=== PATIENT | female | born 1990 | race African-American/Black ===

== ENCOUNTER 2020-12-13 03:59 | Inpatient (IN) | payer OTHER, SELFPAY ==
[2020-12-13 04:05] VITALS: BP 113/64; PULSE 89; RESP 16; TEMP 36.7; O2SAT 97; BMI 20.5
[2020-12-13 04:07] VITALS: BP 113/64; PULSE 89; RESP 16; TEMP 36.7; O2SAT 97
[2020-12-13 04:40] LABS: Glucose Urine UA NEG (NEG); Leukocyte Esterase Urine NEG (NEG); Nitrite Urine NEG (NEG); PH 5.5 (5.0-8.0); Specific Gravity - Urine >= 1.030 (1.005-1.025); Urine Blood NEG (NEG); Urine Ketones 5 MG/DL (NEG); Urine Protein TRACE MG/DL (NEG-TRACE)
[2020-12-13 04:42] LABS: Appearance Urine HAZY; Color Urine YELLOW; UACC CULT NO
[2020-12-13 04:43] LABS: UPreg QC Valid YES; Urine Pregnancy NEGATIVE (NEGATIVE)
[2020-12-13 04:47] LABS: Bacteria Urine 1+ /LPF; Mucus Urine 3+ /LPF; RBC Urine 0 /HPF (0); Squamous Epithelial Cell Urine 3+ /LPF; WBC Urine 0-2 /HPF (0-4)
[2020-12-13 04:52] LABS: COVID-19 Test Negative (Negative); IDNOW Serial# 9DD0AD1C
[2020-12-13 04:56] LABS: Basophils Percent Auto 0.4 % (0-2); Eosinophils Absolute Auto 0.1 X10*3/uL (0.0-0.4); Eosinophils Percent Auto 1.5 % (0-4); Hematocrit 35.1 % (37-47); Hemoglobin 11.6 g/dl (12.0-16.0); Imm Gran Abs Auto 0.02 X10*3/uL (0.00-0.03); Imm Gran Pct Auto 0.3 % (0.0-0.4); Lymphocytes Absolute Auto 1.4 X10*3/uL (1.2-4.9); MANUAL DIFF FLAG NO; Mean Corpuscular Hemoglobin 30.4 pg (27.0-33.0); Mean Corpuscular Volume 91.9 fL (80-98); Mean Platelet Volume 10.6 fL (9.4-12.3); Monocytes Absolute Auto 0.4 X10*3/uL (0.1-1.2); Monocytes Percent Auto 5.7 % (2-11); Neutrophils Absolute Auto 5.6 X10*3/uL (2.0-8.3); Neutrophils Percent Auto 74.1 % (45-73); Platelet Count 245 X10*3/uL (160-400); Red Blood Count 3.82 X10*6/uL (4.20-5.50); Red Cell Distribution Width 12.8 % (11.0-16.0); White Blood Count 7.5 X10*3/uL (4.8-10.8)
--- NOTE | 2020-12-13 04:59 | PC.NURSE ---
ADALGISAN faxed/called/spoke with Diane/confirmed receipt of referral.
--- NOTE | 2020-12-13 05:04 | ED_ITS ---
HPI - Psych General Chief Complaint: Psychiatric Symptoms Stated Complaint: section 12 Time Seen by Provider: 12/13/20 05:04 Source: patient Mode of arrival: ambulatory Limitations: no limitations History of Present Illness HPI Narrative: Patient has history of depression lives in a motel loaded note saying that she is suicidal staff called PD. Patient does have a history of depression and suicidal ideation in the past but never had any suicidal attempt. Patient has a therapist who she has seen 2 weeks ago. Patient does not feel good feels depressed had thoughts of suicide but no plan MD complaint: suicidal ideation Onset (ago): day(s) History of same: Yes Relieving factors: none Exacerbating factors: none Associated psychiatric symptoms: depression and suicidal ideation Associated symptoms: denies other symptoms If self harm: admits thoughts of self harm Related Data Home Medications Medication Instructions Recorded Confirmed benztropine 1 tab PO BEDTIME 12/13/20 12/13/20 risperidone [Risperdal] 1 tab PO BEDTIME 12/13/20 12/13/20 Allergies Allergy/AdvReac Type Severity Reaction Status Date / Time No Known Allergies Allergy Verified 12/13/20 04:20 Review of Systems Review of Systems: Constitutional : No Fever, No Chills ENT/Mouth : No Ear Pain, No Nasal Congestion, No sore throat Eyes: No Eye Pain, No Swelling, No Redness Cardiovascular : No Chest Pain, No SOB Respiratory : No Cough, No Sputum, No Dyspnea Gastrointestinal : No Nausea, No Vomiting, No Diarrhea, No Hematochezia, No Melena Genitourinary : No Dysuria, No Urinary Frequency, No Hematuria Musculoskeletal : No Myalgias Skin : No Skin Lesions, No rash Neuro : No Weakness, No Numbness, No Paresthesias, No Dizziness, No Headache Psych : positive Anxiety, positive Depression, positive SI Heme/Lymph: No Lymphadenopathy Endocrine : No Polyuria, No Polydipsia [facility] Past Medical History Medical History (Updated 12/13/20 @ 05:53 by Pavan Dye MD) Major depression Social History Social History Advance Directives: No Physical Exam Vital Signs: Vital Signs: Last Vital Signs Temp 98.1 F 12/13/20 04:07 Pulse 89 12/13/20 04:07 Resp 16 12/13/20 04:07 BP 113/64 12/13/20 04:07 Pulse Ox 97 12/13/20 04:07 Body Mass Index 20.5 Appearance: Alert. Oriented X3. No acute distress. Eyes: Pupils equal, round and reactive to light. ENT: Pharynx normal. Neck: Normal inspection. Neck supple. CVS: Normal heart rate and rhythm. Pulses normal. Respiratory: No respiratory distress. Breath sounds normal. Abdomen: Soft and nontender. Bowel sounds are present, no mass palpable, no CVA tenderness Skin: Skin warm and dry. Normal skin color. Normal skin turgor. Extremities: No lower extremity edema. Neuro: Oriented X 3. No motor deficit. No sensory deficit. Psych: Depressed denies any hallucinations or delusions judgment fair no current suicidal feeling MDM - Psych MDM Narrative Medical decision making narrative: Patient been depressed with suicidal ideation no current thoughts at this time will get crisis consult Differential Diagnosis Differential diagnosis: Likely depression Medical Records Attestation: I reviewed the patient's medical records. Lab Data Attestation: I reviewed the patient's lab results. Result diagrams: 12/13/20 04:51 12/13/20 04:51 Labs: Lab Results 12/13/20 12/13/20 12/13/20 Range/Units 04:26 04:26 04:26 WBC (4.8-10.8) X10*3/uL RBC (4.20-5.50) X10*6/uL Hgb (12.0-16.0) g/dl Hct (37-47) % MCV (80-98) fL MCH (27.0-33.0) pg MCHC (31.0-35.0) g/dl RDW (11.0-16.0) % Plt Count (160-400) X10*3/uL MPV (9.4-12.3) fL Immature Gran % (Auto) (0.0-0.4) % Neut % (Auto) (45-73) % Lymph % (Auto) (20-40) % Island % (Auto) (2-11) % Eos % (Auto) (0-4) % Baso % (Auto) (0-2) % Lymph # (Auto) (1.2-4.9) X10*3/uL Island # (Auto) (0.1-1.2) X10*3/uL Eos # (Auto) (0.0-0.4) X10*3/uL Baso # (Auto) (0.0-0.2) X10*3/uL Abs Immat Gran (auto) (0.00-0.03) X10*3/uL Absolute Neuts (auto) (2.0-8.3) X10*3/uL Absolute Nucleated RBC (0.0-0.012) X10*3/uL Nucleated RBC % (auto) (0.0-0.2) /100WBC Sodium (135-145) mmol/L Potassium (3.3-5.1) mmol/L Chloride (96-108) mmol/L Carbon Dioxide (22-29) mmol/L Anion Gap (12-20) BUN (9-16) mg/dL Creatinine (0.5-1.4) mg/dL Estim Creat Clear Calc Estimated GFR Random Glucose (60-115) mg/dL Calcium (8.4-10.2) mg/dL Total Bilirubin (0.0-1.0) mg/dL Direct Bilirubin (0.0-0.5) mg/dL AST (5-31) U/L ALT (0-31) U/L Alkaline Phosphatase (39-117) U/L Total Protein (6.5-8.0) g/dL Albumin (3.5-5.0) g/dL Urine Color YELLOW Urine Appearance HAZY Urine pH 5.5 (5.0-8.0) Ur Specific [place] >= 1.030 H (1.005-1.025) Urine Protein TRACE (NEG-TRACE) MG/DL Urine Glucose (UA) NEG (NEG) MG/DL Urine Ketones 5 (NEG) MG/DL Urine Blood NEG (NEG) Urine Nitrite NEG (NEG) Ur Leukocyte Esterase NEG (NEG) Urine RBC 0 (0) /HPF Urine WBC 0-2 (0-4) /HPF Ur Squamous Epith Cells 3+ /LPF Urine Bacteria 1+ /LPF Urine Mucus 3+ /LPF Urine Test (NEGATIVE) Urine Opiates Screen Not Detected (Not Detect) Ur Barbiturates Screen Not Detected (Not Detect) Ur Phencyclidine Scrn Not Detected (Not Detect) Ur Amphetamines Screen Not Detected (Not Detect) U Benzodiazepines Scrn Not Detected (Not Detect) Urine Cocaine Screen Not Detected (Not Detect) U Marijuana (THC) Screen Not Detected (Not Detect) COVID-19 ([facility]) Negative (Negative) COVID-19 Clin Com See Note 12/13/20 12/13/20 12/13/20 Range/Units 04:26 04:51 04:51 WBC 7.5 (4.8-10.8) X10*3/uL RBC 3.82 L (4.20-5.50) X10*6/uL Hgb 11.6 L (12.0-16.0) g/dl Hct 35.1 L (37-47) % MCV 91.9 (80-98) fL MCH 30.4 (27.0-33.0) pg MCHC 33.0 (31.0-35.0) g/dl RDW 12.8 (11.0-16.0) % Plt Count 245 (160-400) X10*3/uL MPV 10.6 (9.4-12.3) fL Immature Gran % (Auto) 0.3 (0.0-0.4) % Neut % (Auto) 74.1 H (45-73) % Lymph % (Auto) 18.0 L (20-40) % Island % (Auto) 5.7 (2-11) % Eos % (Auto) 1.5 (0-4) % Baso % (Auto) 0.4 (0-2) % Lymph # (Auto) 1.4 (1.2-4.9) X10*3/uL Island # (Auto) 0.4 (0.1-1.2) X10*3/uL Eos # (Auto) 0.1 (0.0-0.4) X10*3/uL Baso # (Auto) 0.0 (0.0-0.2) X10*3/uL Abs Immat Gran (auto) 0.02 (0.00-0.03) X10*3/uL Absolute Neuts (auto) 5.6 (2.0-8.3) X10*3/uL Absolute Nucleated RBC 0.000 (0.0-0.012) X10*3/uL Nucleated RBC % (auto) 0.0 (0.0-0.2) /100WBC Sodium 140 (135-145) mmol/L Potassium 3.8 (3.3-5.1) mmol/L Chloride 106 (96-108) mmol/L Carbon Dioxide 23 (22-29) mmol/L Anion Gap 15 (12-20) BUN 10 (9-16) mg/dL Creatinine 0.72 (0.5-1.4) mg/dL Estim Creat Clear Calc 97.2 Estimated GFR > 60 Random Glucose 110 (60-115) mg/dL Calcium 9.0 (8.4-10.2) mg/dL Total Bilirubin 1.0 (0.0-1.0) mg/dL Direct Bilirubin 0.4 (0.0-0.5) mg/dL AST 12 (5-31) U/L ALT 9 (0-31) U/L Alkaline Phosphatase 56 (39-117) U/L Total Protein 7.0 (6.5-8.0) g/dL Albumin 4.5 (3.5-5.0) g/dL Urine Color Urine Appearance Urine pH (5.0-8.0) Ur Specific [place] (1.005-1.025) Urine Protein (NEG-TRACE) MG/DL Urine Glucose (UA) (NEG) MG/DL Urine Ketones (NEG) MG/DL Urine Blood (NEG) Urine Nitrite (NEG) Ur Leukocyte Esterase (NEG) Urine RBC (0) /HPF Urine WBC (0-4) /HPF Ur Squamous Epith Cells /LPF Urine Bacteria /LPF Urine Mucus /LPF Urine Test NEGATIVE (NEGATIVE) Urine Opiates Screen (Not Detect) Ur Barbiturates Screen (Not Detect) Ur Phencyclidine Scrn (Not Detect) Ur Amphetamines Screen (Not Detect) U Benzodiazepines Scrn (Not Detect) Urine Cocaine Screen (Not Detect) U Marijuana (THC) Screen (Not Detect) COVID-19 ([facility]) (Negative) COVID-19 Clin Com Discharge Plan Discharge Clinical Impression: Depression Qualifiers: Depression Type: major depressive disorder Major depression recurrence: recurrent Active/Remission status: currently active Major depression episode severity: moderate Qualified Code(s): F33.1 - Major depressive disorder, recurrent, moderate Prescriptions: No Action benztropine 0.5 mg tablet 1 tab PO BEDTIME RF: 0 risperidone [Risperdal] 1 mg tablet 1 tab PO BEDTIME RF: 0
[2020-12-13 05:07] LABS: Amphetamine Screen Urine Not Detected (Not Detect); Barbiturates, Urine Not Detected (Not Detect); Benzodiazepines Screen Urine Not Detected (Not Detect); Cannabinoid Screen Urine Not Detected (Not Detect); Cocaine Screen Urine Not Detected (Not Detect); Opiate Screen Urine Not Detected (Not Detect); Phencyclidine Screen Urine Not Detected (Not Detect)
[2020-12-13 05:19] LABS: Alanine Aminotransferase 9 U/L (0-31); Albumin Level 4.5 g/dL (3.5-5.0); Alkaline Phosphatase 56 U/L (39-117); Anion Gap 15 (12-20); Aspartate Amino Transferase 12 U/L (5-31); Bilirubin Direct 0.4 mg/dL (0.0-0.5); Blood Urea Nitrogen 10 mg/dL (9-16); Carbon Dioxide 23 mmol/L (22-29); Chloride 106 mmol/L (96-108); Creatinine Clr Calc Pharmacy 97.2; Estimated Glomerular Filt Rate > 60; Glucose Random 110 mg/dL (60-115); Potassium 3.8 mmol/L (3.3-5.1); Sodium 140 mmol/L (135-145)
--- NOTE | 2020-12-13 07:16 | PC.NURSE ---
Report received from Paul HAND. Pt sleeping at this time, awaiting breakfast. Awaiting BHN. BHN made aware of pt waiting for eval.
[2020-12-13 08:00] VITALS: RESP 16
--- NOTE | 2020-12-13 15:57 | PC.NURSE ---
bhn in room for evaluation.
--- NOTE | 2020-12-13 19:08 | PC.NURSE ---
Patient just got seen by N, disposition updated patient is on section-12 inpatient bed search, patient and provider aware, denied distress at this time, will continue to monitor.
[2020-12-13] MEDS: Benztropine Mesylate 0.5 MG TABLET PO (20:19)
[2020-12-13] MEDS: risperiDONE 1 MG TABLET PO (20:19)
[2020-12-13 20:23] VITALS: BP 102/55; PULSE 74; RESP 18; TEMP 36.2; O2SAT 99
[2020-12-14 06:40] VITALS: BP 113/67; PULSE 61; RESP 18; TEMP 36.6; O2SAT 100
--- NOTE | 2020-12-14 07:22 | PC.NURSE ---
Report received from YAZAN Miller. Pt resting, resp unlabored.
[2020-12-14 10:48] VITALS: BP 111/64; PULSE 84; RESP 16; TEMP 36.5; O2SAT 100
--- NOTE | 2020-12-14 12:49 | PC.NURSE ---
Pt awake, alert- reports continued depression and SI. Pt pleasant, + eye contact, ate lunch. Pt aware that she is awaiting inpatient bed - states she has been inpatient in the past and is familiar w/ process.
[2020-12-14 14:00] VITALS: RESP 20
--- NOTE | 2020-12-14 14:06 | PC.NURSE ---
Pt aware that she has been accepted to [facility], and is in agreement w/ plan.
[2020-12-14 15:42] VITALS: BP 102/61; PULSE 78; RESP 15; TEMP 36.6; O2SAT 99
--- NOTE | 2020-12-14 17:46 | PC.NURSE ---
Report given to YAZAN Martínez.
--- NOTE | 2020-12-14 18:19 | PC.NURSE ---
Pt resting, resp unlabored.
--- NOTE | 2020-12-14 20:08 | PC.NURSE ---
Patient in bed resting quietly, no distress observed/reported, per report patient had decent shift, pending admission to , will continue to monitor.
[2020-12-14 21:19] VITALS: BP 100/54; PULSE 77; RESP 18; TEMP 36.8; O2SAT 100
[2020-12-14] MEDS: Benztropine Mesylate 0.5 MG TABLET PO (21:23)
[2020-12-14] MEDS: risperiDONE 1 MG TABLET PO (21:24)
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
[2020-12-15 19:00] VITALS: BP 130/79; PULSE 97; TEMP 36.7
[2020-12-15] MEDS: Benztropine Mesylate 0.5 MG TABLET PO (21:38)
[2020-12-15] MEDS: risperiDONE 1 MG TABLET PO (21:38)
[2020-12-16 06:05] VITALS: BP 87/49; PULSE 69; RESP 16; TEMP 37; O2SAT 98
[2020-12-16 08:26] LABS: Thyroid Stimulating Hormone 2.16 uIU/mL (0.32-4.0)
[2020-12-16 08:27] LABS: Vitamin D 25-OH Total 20.1 ng/mL (>30)
[2020-12-16 18:00] VITALS: BP 105/58; PULSE 89; TEMP 37.1
--- NOTE | 2020-12-16 18:29 | P.PNPSI_ITS ---
Subjective Subjective Date of Service: 12/16/20 Reason For Visit: Suicidality Subjective Notes: Conditional Voluntary Interim History: Michelle was withdrawn and shutdown though she stated that she was feeling safe and secure on the unit. She expressed concern about where she would go when she leaves. She has been in behavioral control. Medication Compliance: Yes Side effects from medications: No Attending Groups: Intermittent Review of Systems Acute medical concerns: No Medical Review of Systems: unchanged Review of Systems Review of Systems Constitutional : No Fever, No Chills ENT/Mouth : No Ear Pain, No Nasal Congestion, No sore throat Eyes: No Eye Pain, No Swelling, No Redness Cardiovascular : No Chest Pain, No SOB Respiratory : No Cough, No Sputum, No Dyspnea Gastrointestinal : No Nausea, No Vomiting, No Diarrhea, No Hematochezia, No Melena Genitourinary : No Dysuria, No Urinary Frequency, No Hematuria Musculoskeletal : No Myalgias Skin : No Skin Lesions, No rash Neuro : No Weakness, No Numbness, No Paresthesias, No Dizziness, No Headache Psych : positive Anxiety, positive Depression, positive SI Heme/Lymph: No Lymphadenopathy Endocrine : No Polyuria, No Polydipsia Yes all other systems are reviewed and are negative Cardiovascular: Reports other (reports hx of angina with increase in anxiety) Reports behavioral changes Psychiatric: Reports abnormal sleep pattern, Reports anxiety, Reports behavioral changes, Reports change in appetite, Reports depression, Reports difficulty concentrating, Reports hopelessness, Reports irritability, Reports anhedonia, Re ports mood swings, Reports panic attacks and Reports suicidal ideation Mental Status Exam Mental Status Exam Patient Appearance: Appropriate Patient Orientation: Person, Place, Time and Situation Level of Consciousness: Awake and Alert Patient Behavior: Appropriate, Guarded, Cooperative, Passive, Suspicious, Anxious, Fearful, Avoidant and Isolative Mood Description: Suspicious, Withdrawn, Depressed and Anxious Affect Description: Withdrawn and Flat Patient Cognition Impaired: No Ability to Follow Directions: Good Speech Pattern: Clear and Spontaneous Speech Memory Description: Intact Hallucinations: None Delusions: Not Present Thought Process: Intact Thought Content: positive for Intact, negative for Suicidal Ideation and negative for Homicidal Ideation Depressive Symptoms: Increased Anxiety and Crying Spells Judgement: Fair Diagnostics Vital Signs (24Hr): Vital Signs - 24 hr 12/15/20 19:00 12/16/20 06:05 Temperature 98.1 F 98.6 F Pulse Rate 97 69 Respiratory Rate 16 Blood Pressure 130/79 87/49 L Pulse Oximetry 98 Body Mass Index 20.5 Labs Results: 12/13/20 04:51 12/13/20 04:51 Labs: Laboratory Results - last 48 hr 12/16/20 12/16/20 07:35 07:35 25-OH Vitamin D Total 20.1 TSH 2.16 Medications Medications Current Medications Generic Name Dose Route Start Last Admin Trade Name Freq PRN Reason Stop Dose Admin Acetaminophen 650 mg 12/14/20 19:34 Acetaminophen 325 Mg Tablet PO Q6H PRN Headache/Pain Mild Scale (1-3) Al Hydroxide/Mg Hydroxide 30 ml 12/14/20 19:34 Magnesium Hydrox/Alum Hydrox 30 Ml Oral.Susp PO Q6H PRN Heartburn/Nausea Benztropine Mesylate 0.5 mg 12/13/20 21:00 12/15/20 21:38 Benztropine Mesylate 0.5 Mg Tablet PO 0.5 mg BEDTIME SHWETA Administration Hydroxyzine HCl 25 mg 12/14/20 19:34 Hydroxyzine Hcl 25 Mg Tablet PO BEDTIME PRN Anxiety Lorazepam 1 mg 12/14/20 19:34 Lorazepam 1 Mg Tablet PO Q4H PRN Anxiety Magnesium Hydroxide 30 ml 12/14/20 19:34 Milk Of Magnesia 30 Ml Oral.Susp PO DAILY PRN Constipation Risperidone 1 mg 12/13/20 21:00 12/15/20 21:38 Risperidone 1 Mg Tablet PO 1 mg BEDTIME SHWETA Administration Risperidone 1 mg 12/14/20 19:45 Risperidone 1 Mg Tablet PO Q4H PRN Anxiety Trazodone HCl 50 mg 12/14/20 19:34 Trazodone Hcl 50 Mg Tablet PO BEDTIME PRN Insomnia Allergies Allergies Allergy/AdvReac Type Severity Reaction Status Date / Time No Known Allergies Allergy Verified 12/13/20 04:20 Assessment & Plan Assessment & Plan (1) Major depressive disorder: Qualifiers: Active/Remission status: remission status unspecified Major depression recurrence: unspecified whether recurrent Qualified Code(s): F32.9 - Major depressive disorder, single episode, unspecified Status: Acute Code(s): F32.9 - Major depressive disorder, single episode, unspecified Assessment and Plan: -Continue current regime Greater than 50% of the session was spent on counseling and/or coordination of care Patient educated on: diagnosis and medication risk/benefits Informed Consent: further education needed Reason for contiued inpatient stay Substantial Risk for: harm to self
[2020-12-16] MEDS: Benztropine Mesylate 0.5 MG TABLET PO (20:13)
[2020-12-16] MEDS: risperiDONE 1 MG TABLET PO (20:13)
[2020-12-17 06:25] VITALS: BP 91/59; PULSE 81; RESP 16; TEMP 37.2; O2SAT 100
--- NOTE | 2020-12-17 15:21 | HO.PSYCHPN ---
Subjective Subjective Date of Service: 12/17/20 Reason For Visit: Suicidality Interim History: Michelle was still quite withdrawn and shutdown though she stated that she was feeling safe and secure on the unit. She expressed concern about where she would go when she leaves. She has been in behavioral control. Medication Compliance: Yes Side effects from medications: No Attending Groups: Yes Review of Systems Acute medical concerns: No Medical Review of Systems: unchanged Review of Systems Review of Systems Constitutional : No Fever, No Chills ENT/Mouth : No Ear Pain, No Nasal Congestion, No sore throat Eyes: No Eye Pain, No Swelling, No Redness Cardiovascular : No Chest Pain, No SOB Respiratory : No Cough, No Sputum, No Dyspnea Gastrointestinal : No Nausea, No Vomiting, No Diarrhea, No Hematochezia, No Melena Genitourinary : No Dysuria, No Urinary Frequency, No Hematuria Musculoskeletal : No Myalgias Skin : No Skin Lesions, No rash Neuro : No Weakness, No Numbness, No Paresthesias, No Dizziness, No Headache Psych : positive Anxiety, positive Depression, positive SI Heme/Lymph: No Lymphadenopathy Endocrine : No Polyuria, No Polydipsia Yes all other systems are reviewed and are negative Cardiovascular: Reports other (reports hx of angina with increase in anxiety) Reports behavioral changes Psychiatric: Reports abnormal sleep pattern, Reports anxiety, Reports behavioral changes, Reports change in appetite, Reports depression, Reports difficulty concentrating, Reports hopelessness, Reports irritability, Reports anhedonia, Reports mood swings, Reports panic attacks and Reports suicidal ideation Mental Status Exam Mental Status Exam Patient Appearance: Appropriate Patient Orientation: Person, Place, Time and Situation Level of Consciousness: Awake and Alert Patient Behavior: Appropriate, Guarded, Cooperative, Passive, Suspicious, Anxious, Fearful, Avoidant and Isolative Mood Description: Suspicious, Withdrawn, Depressed and Anxious Affect Description: Withdrawn and Flat Patient Cognition Impaired: No Ability to Follow Directions: Good Speech Pattern: Clear and Spontaneous Speech Memory Description: Intact Thought Content: negative for Suicidal Ideation and negative for Homicidal Ideation Judgement: Fair Diagnostics Vital Signs (24Hr): Vital Signs - 24 hr 12/16/20 18:00 12/17/20 06:25 Temperature 98.7 F 98.9 F Pulse Rate 89 81 Respiratory Rate 16 Blood Pressure 105/58 L 91/59 L Pulse Oximetry 100 Body Mass Index 20.5 Labs Results: 12/13/20 04:51 12/13/20 04:51 Labs: Laboratory Results - last 48 hr 12/16/20 12/16/20 07:35 07:35 25-OH Vitamin D Total 20.1 TSH 2.16 Medications Medications Current Medications Generic Name Dose Route Start Last Admin Trade Name Diann PRN Reason Stop Dose Admin Acetaminophen 650 mg 12/14/20 19:34 Acetaminophen 325 Mg Tablet PO Q6H PRN Headache/Pain Mild Scale (1-3) Al Hydroxide/Mg Hydroxide 30 ml 12/14/20 19:34 Magnesium Hydrox/Alum Hydrox 30 Ml Oral.Susp PO Q6H PRN Heartburn/Nausea Benztropine Mesylate 0.5 mg 12/13/20 21:00 12/16/20 20:13 Benztropine Mesylate 0.5 Mg Tablet PO 0.5 mg BEDTIME SHWETA Administration Hydroxyzine HCl 25 mg 12/14/20 19:34 Hydroxyzine Hcl 25 Mg Tablet PO BEDTIME PRN Anxiety Lorazepam 1 mg 12/14/20 19:34 Lorazepam 1 Mg Tablet PO Q4H PRN Anxiety Magnesium Hydroxide 30 ml 12/14/20 19:34 Milk Of Magnesia 30 Ml Oral.Susp PO DAILY PRN Constipation Risperidone 1 mg 12/13/20 21:00 12/16/20 20:13 Risperidone 1 Mg Tablet PO 1 mg BEDTIME SHWETA Administration Risperidone 1 mg 12/14/20 19:45 Risperidone 1 Mg Tablet PO Q4H PRN Anxiety Trazodone HCl 50 mg 12/14/20 19:34 Trazodone Hcl 50 Mg Tablet PO BEDTIME PRN Insomnia Allergies Allergies Allergy/AdvReac Type Severity Reaction Status Date / Time No Known Allergies Allergy Verified 12/13/20 04:20 Assessment & Plan Assessment & Plan (1) Major depressive disorder: Qualifiers: Active/Remission status: remission status unspecified Major depression recurrence: unspecified whether recurrent Qualified Code(s): F32.9 - Major depressive disorder, single episode, unspecified Status: Acute Code(s): F32.9 - Major depressive disorder, single episode, unspecified Assessment and Plan: -Continue current regime Greater than 50% of the session was spent on counseling and/or coordination of care Patient educated on: diagnosis and medication risk/benefits Informed Consent: further education needed Reason for contiued inpatient stay Substantial Risk for: rapid decompensation
[2020-12-17 18:55] VITALS: BP 106/64; PULSE 94; TEMP 36.9
[2020-12-17] MEDS: risperiDONE 1 MG TABLET PO (20:25)
[2020-12-17] MEDS: Benztropine Mesylate 0.5 MG TABLET PO (20:25)
[2020-12-18 04:15] LABS: Folate 8.7 ng/mL (> or = 4.0); Vitamin B12 549 pg/mL (200-900)
[2020-12-18 06:05] VITALS: BP 101/55; PULSE 74; RESP 14; TEMP 36.3; O2SAT 100
--- NOTE | 2020-12-18 15:35 | HO.PSYCHPN ---
Subjective Subjective Date of Service: 12/18/20 Reason For Visit: Suicidality Subjective Notes: Conditional Voluntary Interim History: Pt reports difficulty with sleep-latency, VENU. Trazodone has not been too helpful. Reports she is not suicidal. Tells team anxiety and depressive sx are decreased. Discussed issues with her mother and pt's perception that she is not a strong support for her-discussed possible family meeting to clarify pt's issues with mother and development of a plan-pt unsure if she wants to address this or just move forward without family involvement. Discussed changing checks-pt is feeling safe to go on regular checks. She is considering PHP however will make contact with the program on her own as there are technical issues she needs to manage. Feeling uncomfortable living in her apartment and wanting to work on moving to another place. Discussion of discharge and planning. Medication Compliance: Yes Side effects from medications: No Attending Groups: Intermittent Review of Systems Review of Systems Yes all other systems are reviewed and are negative (denies) Psychiatric: Reports abnormal sleep pattern Mental Status Exam Mental Status Exam Patient Appearance: Disheveled Patient Orientation: Person, Place, Time and Situation Level of Consciousness: Alert Patient Behavior: Appropriate, Talkative and Good Eye Contact Mood Description: Withdrawn Affect Description: Flat Patient Cognition Impaired: No Ability to Follow Directions: Good Speech Pattern: Spontaneous Speech Memory Description: Intact Hallucinations: None (denies) Delusions: Not Present Thought Process: Intact Thought Content: positive for Intact and positive for Suicidal Ideation (denies) Depressive Symptoms: Increased Anxiety Judgement: Good Diagnostics Vital Signs (24Hr): Vital Signs - 24 hr 12/17/20 18:55 12/18/20 06:05 Temperature 98.4 F 97.4 F Pulse Rate 94 74 Respiratory Rate 14 Blood Pressure 106/64 101/55 L Pulse Oximetry 100 Body Mass Index 20.5 Labs Results: 12/13/20 04:51 12/13/20 04:51 Labs: Laboratory Results - last 48 hr 12/16/20 07:35 Vitamin B12 549 Folate 8.7 Medications Medications Current Medications Generic Name Dose Route Start Last Admin Trade Name Freq PRN Reason Stop Dose Admin Acetaminophen 650 mg 12/14/20 19:34 Acetaminophen 325 Mg Tablet PO Q6H PRN Headache/Pain Mild Scale (1-3) Al Hydroxide/Mg Hydroxide 30 ml 12/14/20 19:34 Magnesium Hydrox/Alum Hydrox 30 Ml Oral.Susp PO Q6H PRN Heartburn/Nausea Benztropine Mesylate 0.5 mg 12/13/20 21:00 12/17/20 20:25 Benztropine Mesylate 0.5 Mg Tablet PO 0.5 mg BEDTIME SHWETA Administration Hydroxyzine HCl 25 mg 12/14/20 19:34 Hydroxyzine Hcl 25 Mg Tablet PO BEDTIME PRN Anxiety Lorazepam 1 mg 12/14/20 19:34 Lorazepam 1 Mg Tablet PO Q4H PRN Anxiety Magnesium Hydroxide 30 ml 12/14/20 19:34 Milk Of Magnesia 30 Ml Oral.Susp PO DAILY PRN Constipation Risperidone 1 mg 12/13/20 21:00 12/17/20 20:25 Risperidone 1 Mg Tablet PO 1 mg BEDTIME SHWETA Administration Risperidone 1 mg 12/14/20 19:45 Risperidone 1 Mg Tablet PO Q4H PRN Anxiety Trazodone HCl 50 mg 12/14/20 19:34 Trazodone Hcl 50 Mg Tablet PO BEDTIME PRN Insomnia Allergies Allergies Allergy/AdvReac Type Severity Reaction Status Date / Time No Known Allergies Allergy Verified 12/13/20 04:20 Assessment & Plan Assessment & Plan (1) Recurrent major depression: Status: Acute Code(s): F33.9 - Major depressive disorder, recurrent, unspecified Assessment and Plan: -Remeron 7.5 mg hs to assist with sleep -Discussed with pt if she would find a family meeting with her mother to be helpful prior to discharge. She will consider this. Greater than 50% of the session was spent on counseling and/or coordination of care Reason for contiued inpatient stay Substantial Risk for: harm to self and rapid decompensation
[2020-12-18 18:00] VITALS: BP 120/67; PULSE 88; TEMP 36.2
[2020-12-18] MEDS: Benztropine Mesylate 0.5 MG TABLET PO (21:26)
[2020-12-18] MEDS: Mirtazapine 7.5 MG TABLET PO (21:26)
[2020-12-18] MEDS: risperiDONE 1 MG TABLET PO (21:26)
[2020-12-19 06:15] VITALS: BP 105/53; PULSE 67; RESP 16; TEMP 36.7; O2SAT 100
[2020-12-19 08:45] LABS: Estimated Average Glucose 88 mg/dL; Hemoglobin A1C 90.2389 umol/L; Hemoglobin A1c % 4.7 %
[2020-12-19 09:08] LABS: Cholesterol 166 mg/dL; Glucose Fasting 80 mg/dL (60-99); HDL Cholesterol 53 mg/dL; LDL Cholesterol Calculated 101 mg/dl; Triglycerides 61 mg/dL
--- NOTE | 2020-12-19 13:04 | PM.PSYDC ---
DS: Providers Provider Date of Service: 01/07/21 Date of admission: 12/14/20 21:36 Primary care physician: Scarlet Acosta MD DS: Diagnosis Discharge Diagnosis (1) Recurrent major depression: Status: Acute Problem details: 30 yo female, hx of major depression, admitted after leaving a suicide note at the assistant front end manager of a hotel where she was staying. Reports a history of depression and SIBS-cutting, burning, hair pulling, hitting herself. Current precipitant is ongoing conflicts with her mother and pt's reported lack of knowledge of appropriate coping skills to manage her emotions and assist her in modulation of affect with stress arises. DS: Medications Discharge Medications Home Medications: Previous Rx's Medication Instructions Recorded benztropine 1 tab PO BEDTIME #30 tab 12/19/20 mirtazapine 7.5 mg PO BEDTIME #15 tab 12/19/20 risperidone [Risperdal] 1 tab PO BEDTIME #30 tab 12/19/20 Discharge Plan Discharge Patient Disposition: Home, Self-Care Discharge Diagnosis: Recurrent Major Depression Referrals: Therapist: Richardson Gonsales ([facility]) [Other] - 12/22/20 2:00 pm Psych Prescriber: Margareth Hurst ([facility]) [Other] - 01/17/21 2:40 pm Psych Prescriber: Margareth Hurst ([facility]) [Other] - 02/14/21 8:40 am [facility] ([facility]) [Other] Scarlet Mckenna, [employer] [Nurse Practitioner] - 01/05/21 9:40 am (IN OFFICE) Discharge Medications: New mirtazapine 7.5 mg Tablet 7.5 mg PO BEDTIME Qty: 15 RF: 1 Continued benztropine 0.5 mg tablet 1 tab PO BEDTIME Qty: 30 RF: 0 risperidone [Risperdal] 1 mg tablet 1 tab PO BEDTIME Qty: 30 RF: 0 Discharge Orders: Discharge Order (Routine); Ordered 12/19/20 Ordered By: Sarai Lorenzana Diet: advance to usual diet Activity on Discharge: As tolerated Stand Alone Forms: Patient Portal Discharge page, Community Support Care Plan Goals: Mood stability Health Concerns: Recurrent Major Depression Plan of Treatment: Take medications as directed Follow up with provider appointments Work with [facility] on your career goals. Assessment: Pt has returned to baseline. She has clear goals that are future oriented. Discharge Date/Time: 12/19/20 13:55 Mental Status Exam Mental Status Exam Patient Appearance: Appropriate Patient Orientation: Person, Place, Time and Situation Level of Consciousness: Alert Patient Behavior: Appropriate, Talkative and Cooperative Mood Description: Calm Affect Description: Calm Patient Cognition Impaired: No Ability to Follow Directions: Good Speech Pattern: Spontaneous Speech Memory Description: Intact Hallucinations: None Delusions: Not Present Thought Process: Intact Thought Content: positive for Intact and positive for Suicidal Ideation (denies) Judgement: Good Data Data Completed and Pending Completed studies during hospitalization [Text1]: 12/13/20 12/13/20 12/13/20 04:26 04:26 04:26 WBC RBC Hgb Hct MCV MCH MCHC RDW Plt Count MPV Immature Gran % (Auto) Neut % (Auto) Lymph % (Auto) Daniels % (Auto) Eos % (Auto) Baso % (Auto) Lymph # (Auto) Daniels # (Auto) Eos # (Auto) Baso # (Auto) Abs Immat Gran (auto) Absolute Neuts (auto) Absolute Nucleated RBC Nucleated RBC % (auto) Sodium Potassium Chloride Carbon Dioxide Anion Gap BUN Creatinine Estim Creat Clear Calc Estimated GFR Random Glucose Fasting Glucose Estimat Average Glucose Hemoglobin A1c % Calcium Total Bilirubin Direct Bilirubin AST ALT Alkaline Phosphatase Total Protein Albumin Triglycerides Cholesterol LDL Cholesterol, Calc HDL Cholesterol Vitamin B12 25-OH Vitamin D Total Folate TSH Urine Color YELLOW Urine Appearance HAZY Urine pH 5.5 Ur Specific [place] >= 1.030 H Urine Protein TRACE Urine Glucose (UA) NEG Urine Ketones 5 Urine Blood NEG Urine Nitrite NEG Ur Leukocyte Esterase NEG Urine RBC 0 Urine WBC 0-2 Ur Squamous Epith Cells 3+ Urine Bacteria 1+ Urine Mucus 3+ Urine Test Urine Opiates Screen Not Detected Ur Barbiturates Screen Not Detected Ur Phencyclidine Scrn Not Detected Ur Amphetamines Screen Not Detected U Benzodiazepines Scrn Not Detected Urine Cocaine Screen Not Detected U Marijuana (THC) Screen Not Detected COVID-19 ([facility]) Negative COVID-19 Clin Com See Note 12/13/20 12/13/20 12/13/20 04:26 04:51 04:51 WBC 7.5 RBC 3.82 L Hgb 11.6 L Hct 35.1 L MCV 91.9 MCH 30.4 MCHC 33.0 RDW 12.8 Plt Count 245 MPV 10.6 Immature Gran % (Auto) 0.3 Neut % (Auto) 74.1 H Lymph % (Auto) 18.0 L Daniels % (Auto) 5.7 Eos % (Auto) 1.5 Baso % (Auto) 0.4 Lymph # (Auto) 1.4 Daniels # (Auto) 0.4 Eos # (Auto) 0.1 Baso # (Auto) 0.0 Abs Immat Gran (auto) 0.02 Absolute Neuts (auto) 5.6 Absolute Nucleated RBC 0.000 Nucleated RBC % (auto) 0.0 Sodium 140 Potassium 3.8 Chloride 106 Carbon Dioxide 23 Anion Gap 15 BUN 10 Creatinine 0.72 Estim Creat Clear Calc 97.2 Estimated GFR > 60 Random Glucose 110 Fasting Glucose Estimat Average Glucose Hemoglobin A1c % Calcium 9.0 Total Bilirubin 1.0 Direct Bilirubin 0.4 AST 12 ALT 9 Alkaline Phosphatase 56 Total Protein 7.0 Albumin 4.5 Triglycerides Cholesterol LDL Cholesterol, Calc HDL Cholesterol Vitamin B12 25-OH Vitamin D Total Folate TSH Urine Color Urine Appearance Urine pH Ur Specific [place] Urine Protein Urine Glucose (UA) Urine Ketones Urine Blood Urine Nitrite Ur Leukocyte Esterase Urine RBC Urine WBC Ur Squamous Epith Cells Urine Bacteria Urine Mucus Urine Test NEGATIVE Urine Opiates Screen Ur Barbiturates Screen Ur Phencyclidine Scrn Ur Amphetamines Screen U Benzodiazepines Scrn Urine Cocaine Screen U Marijuana (THC) Screen COVID-19 ([facility]) COVID-19 Clin Com 12/16/20 12/16/20 12/16/20 07:35 07:35 07:35 WBC RBC Hgb Hct MCV MCH MCHC RDW Plt Count MPV Immature Gran % (Auto) Neut % (Auto) Lymph % (Auto) Daniels % (Auto) Eos % (Auto) Baso % (Auto) Lymph # (Auto) Daniels # (Auto) Eos # (Auto) Baso # (Auto) Abs Immat Gran (auto) Absolute Neuts (auto) Absolute Nucleated RBC Nucleated RBC % (auto) Sodium Potassium Chloride Carbon Dioxide Anion Gap BUN Creatinine Estim Creat Clear Calc Estimated GFR Random Glucose Fasting Glucose Estimat Average Glucose Hemoglobin A1c % Calcium Total Bilirubin Direct Bilirubin AST ALT Alkaline Phosphatase Total Protein Albumin Triglycerides Cholesterol LDL Cholesterol, Calc HDL Cholesterol Vitamin B12 549 25-OH Vitamin D Total 20.1 Folate 8.7 TSH 2.16 Urine Color Urine Appearance Urine pH Ur Specific [place] Urine Protein Urine Glucose (UA) Urine Ketones Urine Blood Urine Nitrite Ur Leukocyte Esterase Urine RBC Urine WBC Ur Squamous Epith Cells Urine Bacteria Urine Mucus Urine Test Urine Opiates Screen Ur Barbiturates Screen Ur Phencyclidine Scrn Ur Amphetamines Screen U Benzodiazepines Scrn Urine Cocaine Screen U Marijuana (THC) Screen COVID-19 ([facility]) COVID-19 Clin Com 12/19/20 12/19/20 08:23 08:23 WBC RBC Hgb Hct MCV MCH MCHC RDW Plt Count MPV Immature Gran % (Auto) Neut % (Auto) Lymph % (Auto) Daniels % (Auto) Eos % (Auto) Baso % (Auto) Lymph # (Auto) Daniels # (Auto) Eos # (Auto) Baso # (Auto) Abs Immat Gran (auto) Absolute Neuts (auto) Absolute Nucleated RBC Nucleated RBC % (auto) Sodium Potassium Chloride Carbon Dioxide Anion Gap BUN Creatinine Estim Creat Clear Calc Estimated GFR Random Glucose Fasting Glucose 80 Estimat Average Glucose 88 Hemoglobin A1c % 4.7 Calcium Total Bilirubin Direct Bilirubin AST ALT Alkaline Phosphatase Total Protein Albumin Triglycerides 61 Cholesterol 166 LDL Cholesterol, Calc 101 HDL Cholesterol 53 Vitamin B12 25-OH Vitamin D Total Folate TSH Urine Color Urine Appearance Urine pH Ur Specific [place] Urine Protein Urine Glucose (UA) Urine Ketones Urine Blood Urine Nitrite Ur Leukocyte Esterase Urine RBC Urine WBC Ur Squamous Epith Cells Urine Bacteria Urine Mucus Urine Test Urine Opiates Screen Ur Barbiturates Screen Ur Phencyclidine Scrn Ur Amphetamines Screen U Benzodiazepines Scrn Urine Cocaine Screen U Marijuana (THC) Screen COVID-19 ([facility]) COVID-19 Clin Com DS: Summary Hospital Course Hospital Course: Pt signed a conditional voluntary on admission. She was able to form alliances and work with the nursing and social service technician team to assist her in stabilizing her mood and planning to move ahead with scheduled supports. A telephone meeting was held with pt, mother and team. Mother expressed her love and care for pt however states that she attempts to be honest with pt and direct her appropriately. Pt at times interprets this critically and conflicts arise. Pt, in this meeting, was unable to hear mother's perspective and left the meeting, stating she disagreed with mother and felt her stance was unsupportive and abusive. Pt reported she preferred to focus on her own goals-that of having career, apartment and independence. She was given information on [facility] services and will follow up with them. Medications were discussed with pt who refused mood stabilizer trial to assist in modulation of her intensity of affect. She did accept low dose Mirtazapine to assist with sleep and anxiety managment. Time spent discussing smoking cessation with patient: 3 to 10 minutes Status at Discharge Cognitive/behavioral status at discharge: alert, oriented, non-suicidal, non-homicidal, no evidence of psychosis. Affect and mood were WNL. Functional status at discharge: independent ambulation Overall status at discharge: patient is back to baseline Time Spent with Patient Time attestation: Total time spent providing and/or coordinating discharge services: 35 Time spent: Greater than 30 minutes
== END 2020-12-19 13:55 | disposition home or self-care (01) | DRG 751 ==
LOC: HO.ED 12-14 19:09 → HO.PM5 12-14 22:01
PROVIDERS: Admitting Provider Psychiatry & Neurology Psychiatry; Emergency Provider Internal Medicine; Visit Provider Clinical Nurse Specialist Psychiatric/Mental Health, Adult
DX: F33.1 Major depressive disorder, recurrent, moderate (principal); F43.10 Post-traumatic stress disorder, unspecified; R45.851 Suicidal ideations; Z20.822 Contact with and (suspected) exposure to COVID-19; Z79.899 Other long term (current) drug therapy
CPT/HCPCS: 36415; 80048; 80061; 80076; 80307; 81001; 81025; 82306; 82607; 82746; 82947; 83036; 84443; 85025; 87635; 99285